=== PATIENT | male | born 1930 | race Caucasian/White ===

== ENCOUNTER 2016-12-23 11:17 | Emergency (ER) | payer OTHER ==
[~2016-12-23] VITALS: Ht 172.7 cm; Wt 97.0 kg
[~2016-12-23 11:17] MED LIST: ASCORBIC ACID250 MG PO; ASPIR 8181 M1 PO; ASPIRIN81 M1 PO; Advair HFA 115/21 IH; Aspirin E.C. PO; Augmentin PO; CALCIUM CARB1 TABLET PO; CARDIZEM CD,CA240 MG PO; CARDIZEM CD240 MG PO; COLACE100 MG PO; CYANOCOBALAM1000 MC1 NG; CYANOCOBALAM1000 MCG PO; Ceftin PO; Colace PO; DICLOXACILLIN500 MG PO; DILTIAZEM 24HR240 M1 PO; DOCUSATE SODIU100 MG PO; FERGON324 MG PO; FERROUS SULFAT325 MG PO; FOLIC ACID1 MG PO; Flagyl PO; GABAPENTIN100 MG PO; HALFPRIN81 M1 PO; IMDUR30 MG; IMDUR30 MG PO; ISOSORBIDE DINI20 MG PO; ISOSORBIDE MONO30 MG PO; KAO-TIN240 MG PO; LASIX20 MG PO; METRONIDAZOLE500 MG PO; MICRO-K,K-DUR,10 MEQ PO; MORPHINE SULFAT30 M2 PO; MORPHINE SULFAT30 M5; MORPHINE SULFAT30 M5 PO; Norvasc PO; OMEPRAZOLE20 M2 PO; OMEPRAZOLE20 MG PO; PREDNISONE10 MG PO; PROAIR RESPICL90 MCG IH; PROVENTIL,2.5 MG/0.5 IH; SENNA LAX8.6 MG PO; SENNA8.6 MG PO; SIMVASTATIN80 M1 PO; THEOPHYLLINE A200 M1 PO; VENTOLIN HFA18 GM IH; VITAMIN B12 100MCG PO; VITAMIN C250 MG PO; Vicodin,Norco 5/325 PO; Zithromax PO; predniSONE PO
[2016-12-23 12:23] LABS: HEMATOCRIT 32.6 % (38.0-50.0); MCH 31.5 PG (29.0-34.0); MCHC 32.2 G/DL (30.0-36.0); MCV 97.9 FL (86-99); RBC DIS.WIDTH-CV 16.9 % (11.8-14.6); RBC DIS.WIDTH-SD 57.7 % (39-53); RED BLOOD COUNT 3.33 M/uL (4.00-5.50); WHITE BLOOD COUNT 4.4 K/uL (4.1-10.2)
[2016-12-23 12:48] LABS: EOSINOPHIL COUNT 0.4 K/uL (0-0.3); IMMATURE GRANULOCYTE (%) 0.5 % (0.0-0.7); IMMATURE GRANULOCYTE COUNT 0.2 K/uL; LYMPHOCYTE COUNT 0.3 K/uL (1.0-2.8); MONOCYTE (%) 6.7 % (3-12); MONOCYTE COUNT 0.3 K/uL (0-0.8); NEUTROPHIL (%) 78.2 % (45-76); NEUTROPHIL COUNT 3.4 K/uL (1.8-6.4)
[2016-12-23 13:07] LABS: TROP-I INTERPRETATION NEGATIVE; TROPONIN-I < 0.01 ng/mL (0.0-0.30)
[2016-12-23 13:34] LABS: CHLORIDE 112 mEq/L (99-109); POTASSIUM 3.7 mEq/L (3.7-5.4); SODIUM 142 mEq/L (136-147)
[2016-12-23 13:36] LABS: GLUCOSE 202 mg/dL (70-99)
[2016-12-23 13:37] LABS: ANION GAP 11 MEQ/L (2-14)
[2016-12-23 13:38] LABS: TOTAL BILIRUBIN 0.4 mg/dL (0.0-1.0)
[2016-12-23 13:40] LABS: ALKALINE PHOSPHATASE 68 IU/L (3-129); GFR ESTIMATE (CALCULATED) > 59 mL/min/
[2016-12-23 13:41] LABS: UREA NITROGEN (BUN) 20 mg/dL (9-23)
[2016-12-23 14:15] LABS: PLATELET COUNT UNABLE TO REPORT K/uL (156-360); USER ID TLW
[2016-12-23] MEDS ORDERED: PREDNISONE50 MG PO (14:58)
[2016-12-23] MEDS ORDERED: LEVAQUIN500 MG PO (14:58)
[2016-12-23 15:57] VITALS: BP 127/50
== END 2016-12-23 15:58 | disposition home or self-care (01) ==
LOC: EME 11:17
PROVIDERS: Emergency Medicine
DX: J44.0 Chronic obstructive pulmonary disease with (acute) lower respiratory infection (principal); J20.9 Acute bronchitis, unspecified; J44.1 Chronic obstructive pulmonary disease with (acute) exacerbation; R91.8 Other nonspecific abnormal finding of lung field; I11.0 Hypertensive heart disease with heart failure; I50.9 Heart failure, unspecified; G89.29 Other chronic pain; I25.2 Old myocardial infarction; K21.9 Gastro-esophageal reflux disease without esophagitis; G47.30 Sleep apnea, unspecified; I73.9 Peripheral vascular disease, unspecified; Z95.1 Presence of aortocoronary bypass graft; Z96.653 Presence of artificial knee joint, bilateral; Z85.038 Personal history of other malignant neoplasm of large intestine; Z85.118 Personal history of other malignant neoplasm of bronchus and lung; Z79.82 Long term (current) use of aspirin; Z87.891 Personal history of nicotine dependence
CPT/HCPCS: 71020; 80053; 83880; 84484; 85025; 93005; 94644; J2930

== ENCOUNTER 2017-03-20 07:16 | Inpatient (IN) | payer OTHER ==
[~2017-03-20] VITALS: Ht 175.3 cm; Wt 106.5 kg
[~2017-03-20 07:16] MED LIST changes: +LEVAQUIN500 MG PO; +PREDNISONE50 MG PO
[2017-03-20 08:53] LABS: INTER. NORMALIZED RATIO 1.1; PROTHROMBIN TIME 11.4 (9.2-11.2); PTT 22.6 (25-32)
[2017-03-20 08:54] LABS: CHLORIDE 108 mEq/L (99-109); POTASSIUM 4.8 mEq/L (3.7-5.4); SODIUM 141 mEq/L (136-147)
[2017-03-20 08:55] LABS: GLUCOSE 86 mg/dL (70-99)
[2017-03-20 08:57] LABS: ANION GAP 10 MEQ/L (2-14)
[2017-03-20 08:59] LABS: GFR ESTIMATE (CALCULATED) 56 mL/min/
[2017-03-20 09:00] LABS: UREA NITROGEN (BUN) 20 mg/dL (9-23)
[2017-03-20 09:05] LABS: TROP-I INTERPRETATION NEGATIVE; TROPONIN-I < 0.01 ng/mL (0.0-0.30)
[2017-03-20 09:06] LABS: BASE EXCESS 0.8 mEq/L (-3 to +3); CARBOXY HGB 1.6 % (0-5); COMMENTS - BLOOD GASES NAC+; O2 FLOW 2 L/MIN; PCO2 43 mm Hg (35-45); PO2 70 mm Hg (80-100); SITE LR; pH 7.39 (7.35-7.45)
[2017-03-20 09:07] LABS: DEVICE CANNULA; TOTAL RESP RATE 12 resp/min
[2017-03-20 09:37] LABS: EOSINOPHIL (%) 2.2 % (0-5); EOSINOPHIL COUNT 0.2 K/uL (0-0.3); HEMATOCRIT 34.7 % (38.0-50.0); IMMATURE GRANULOCYTE (%) 0.5 % (0.0-0.7); INSTRUMENT ABS NEUTROPHIL CT 6.3 K/uL; LYMPHOCYTE COUNT 0.7 K/uL (1.0-2.8); MCH 30.2 PG (29.0-34.0); MCHC 30.5 G/DL (30.0-36.0); MCV 98.9 FL (86-99); MEAN PLAT.VOLUME 9.4 uM^3 (9.0-12.4); MONOCYTE (%) 6.4 % (3-12); MONOCYTE COUNT 0.5 K/uL (0-0.8); NEUTROPHIL (%) 82.1 % (45-76); NEUTROPHIL COUNT 6.3 K/uL (1.8-6.4); PLATELET COUNT 213 K/uL (156-360); RBC DIS.WIDTH-CV 17.4 % (11.8-14.6); RBC DIS.WIDTH-SD 61.6 % (39-53); RED BLOOD COUNT 3.51 M/uL (4.00-5.50); WHITE BLOOD COUNT 7.7 K/uL (4.1-10.2)
[2017-03-20] MEDS ORDERED: CYANOCOBALAM1000 MCG PO (11:11)
[2017-03-20] MEDS ORDERED: ANTIBIOTIC PO (11:14)
[2017-03-20] MEDS ORDERED: CALCIUM 600 +1 EAC1 PO (11:19)
[2017-03-20 11:20] LABS: ADD MIUA? NO; BILIRUBIN NEGATIVE; BLOOD NEGATIVE; COLOR STRAW ((YELLOW)); GLUCOSE (STRIP) NEGATIVE; KETONES NEGATIVE; LEUKOCYTES NEGATIVE; NITRITE NEGATIVE; PROTEIN (STRIP) NEGATIVE; SPECIFIC GRAVITY 1.009 (1.000-1.030); UCUL ADDED? NO; UROBILINOGEN 0.2 MG/DL (0.2-1.0)
[2017-03-20] MEDS ORDERED: GENTAMICIN SULF30 GM TP (11:40)
[2017-03-20] MEDS ORDERED: PROVENTIL,2.5 MG/3 M IH (11:42)
[2017-03-20] MEDS ORDERED: VENTOLIN HFA18 GM IH (11:42)
[2017-03-20 11:45] VITALS: BP 160/77
[2017-03-20 17:02] VITALS: BP 125/64
[2017-03-20 19:18] VITALS: BP 133/67
[2017-03-20 22:35] VITALS: BP 129/63
[2017-03-21 04:02] VITALS: BP 106/56
[2017-03-21 07:55] LABS: RBC DIS.WIDTH-CV 17.6 % (11.8-14.6); RBC DIS.WIDTH-SD 60.9 % (39-53); WHITE BLOOD COUNT 6.2 K/uL (4.1-10.2)
[2017-03-21 07:58] VITALS: BP 123/60
[2017-03-21 07:59] LABS: ANION GAP 8 MEQ/L (2-14); CHLORIDE 103 MEQ/L (99-109); GFR ESTIMATE (CALCULATED) 56 mL/min/; POTASSIUM 5.3 MEQ/L (3.7-5.4); SAMPLE HEMOLYSIS CHECK 0; SAMPLE ICTERIC CHECK 0; SAMPLE LIPEMIA CHECK 0; SODIUM 139 MEQ/L (136-147); UREA NITROGEN (BUN) 23 mg/dL (9-23)
[2017-03-21 08:07] LABS: GLUCOSE 139 mg/dL (70-99)
[2017-03-21 08:15] LABS: HEMATOLOGY COMMENT 1 PLATELET CLUMPS PRESENT - PLATELETS APPEAR ADEQUATE; MEAN PLAT.VOLUME 11.1 uM^3 (9.0-12.4); PLAT.SUFFICIENCY ADEQUATE
[2017-03-21 08:16] LABS: PLATELET CLUMPS PRESENT
[2017-03-21 08:35] LABS: INTERNAL CONTROL VALID? YES
[2017-03-21 11:01] LABS: METH RESISTANT S AUREUS PCR POSITIVE (NEGATIVE)
[2017-03-21 11:06] LABS: PROBE CHECK PASS
[2017-03-21 11:26] VITALS: BP 116/55
[2017-03-21 15:47] VITALS: BP 110/68
[2017-03-21 18:59] VITALS: BP 126/58
[2017-03-22 00:05] VITALS: BP 135/64
[2017-03-22 03:36] VITALS: BP 121/57
[2017-03-22 07:37] VITALS: BP 135/59
[2017-03-22 10:43] VITALS: BP 127/63
[2017-03-22 10:48] LABS: HEMATOCRIT 33.6 % (38.0-50.0); MCH 29.4 PG (29.0-34.0); MCHC 30.4 G/DL (30.0-36.0); MCV 96.8 FL (86-99); MEAN PLAT.VOLUME 11.3 uM^3 (9.0-12.4); RBC DIS.WIDTH-CV 17.8 % (11.8-14.6); RBC DIS.WIDTH-SD 63.5 % (39-53); RED BLOOD COUNT 3.47 M/uL (4.00-5.50); WHITE BLOOD COUNT 11.1 K/uL (4.1-10.2)
[2017-03-22 10:49] LABS: PLATELET COUNT 148 K/uL (156-360)
[2017-03-22 13:45] LABS: RED BLOOD COUNT 3.49 M/uL (4.00-5.50)
[2017-03-22 13:46] LABS: HEMATOCRIT 36.2 % (38.0-50.0)
[2017-03-22 13:47] LABS: MCH 28.9 PG (29.0-34.0); MCV 103.7 FL (86-99)
[2017-03-22 13:48] LABS: MCHC 27.9 G/DL (30.0-36.0)
[2017-03-22 15:00] VITALS: BP 124/70
[2017-03-22 19:20] VITALS: BP 124/60
[2017-03-23 00:42] VITALS: BP 142/89
[2017-03-23 03:45] VITALS: BP 106/58
[2017-03-23 08:00] VITALS: BP 133/78
[2017-03-23 08:50] LABS: HEMATOCRIT 33.5 % (38.0-50.0); MCH 29.6 PG (29.0-34.0); MCHC 31.3 G/DL (30.0-36.0); MCV 94.4 FL (86-99); RBC DIS.WIDTH-CV 17.3 % (11.8-14.6); RBC DIS.WIDTH-SD 60.4 % (39-53); RED BLOOD COUNT 3.55 M/uL (4.00-5.50)
[2017-03-23 08:56] LABS: MEAN PLAT.VOLUME 10.4 uM^3 (9.0-12.4)
[2017-03-23 09:22] LABS: PLATELET COUNT 53 K/uL (156-360)
[2017-03-23] MEDS ORDERED: ADVAIR HFA120 INHALA IH (10:19)
[2017-03-23] MEDS ORDERED: LEVAQUIN750 MG PO (10:19)
[2017-03-23] MEDS ORDERED: LASIX20 MG PO (10:19)
[2017-03-23] MEDS ORDERED: DUONEB 2.5-0.5 M3 ML AEROSOL (10:19)
[2017-03-23] MEDS ORDERED: SPIRIVA RESPIMAT4 GM IH (10:19)
[2017-03-23] MEDS ORDERED: DELTASONE20 M1 PO (10:22)
[2017-03-23 16:19] VITALS: BP 140/64
== END 2017-03-23 16:35 | disposition hospice, home (50) | DRG 166 ==
LOC: EME 07:16 → EDOF 10:48 → 5EAST 10:48
PROVIDERS: Emergency Medicine; Internal Medicine
PROC: 5A09357 Assistance with Respiratory Ventilation, Less than 24 Consecutive Hours, Continuous Positive Airway Pressure (ICD-10-PCS; principal; 2017-03-21)
PROC: 0HBNXZZ Excision of Left Foot Skin, External Approach (ICD-10-PCS; principal; 2017-03-21)
PROC: 0HBKXZZ Excision of Right Lower Leg Skin, External Approach (ICD-10-PCS; principal; 2017-03-21)
DX: J96.20 Acute and chronic respiratory failure, unspecified whether with hypoxia or hypercapnia (principal); J44.0 Chronic obstructive pulmonary disease with (acute) lower respiratory infection; J18.9 Pneumonia, unspecified organism; C79.89 Secondary malignant neoplasm of other specified sites; J44.1 Chronic obstructive pulmonary disease with (acute) exacerbation; L97.819 Non-pressure chronic ulcer of other part of right lower leg with unspecified severity; L97.329 Non-pressure chronic ulcer of left ankle with unspecified severity; G47.30 Sleep apnea, unspecified; I25.10 Atherosclerotic heart disease of native coronary artery without angina pectoris; I10 Essential (primary) hypertension; Z66 Do not resuscitate; Z87.891 Personal history of nicotine dependence; E66.9 Obesity, unspecified; D63.8 Anemia in other chronic diseases classified elsewhere; C34.90 Malignant neoplasm of unspecified part of unspecified bronchus or lung; Z22.322 Carrier or suspected carrier of Methicillin resistant Staphylococcus aureus
CPT/HCPCS: 36600; 71010; 80048; 80202; 81003; 82803; 83880; 84484; 85025; 85027; 85610; 85730; 87040; 87070; 87205; 87449; 87641; 87801; 93005; 94640; 94640 76; 94644; 94667; 94668; 94760; 94799; 99281; 99285; A6260; J0456; J0692; J0696; J1650; J1940; J2930; J3370; J7030; J7050; J7512; J7644